=== PATIENT | male | born 1975 | race Caucasian/White ===

== ENCOUNTER 2018-10-09 04:32 | Day surgery (SDC) | payer OTHER ==
[~2018-10-09] VITALS: Ht 182.9 cm; Wt 119.7 kg
[2018-10-09 05:11] LABS: BASOPHILS 0.4 % (0-2); EOSINOPHILS 4.4 % (0-7); HEMATOCRIT 38.4 % (42.0-54.0); HEMOGLOBIN 13.7 g/dL (13.5-17.5); IMMATURE GRANULOCYTES 0.1 % (0-5); LYMPHOCYTES 44.9 % (15-50); MCHC 35.7 g/dL (31.0-37.0); MCV 86.9 fL (80.0-100.0); MEAN PLATELET VOLUME 9.1 fL (7.4-10.4); MONOCYTES 4.8 % (2-11); NEUTROPHILS 45.4 % (40-80); PLATELET COUNT 245 10x3/uL (130-400); RBC 4.42 10x6/uL (4.20-6.10); RDW 12.4 % (11.5-14.5); WBC 7.1 10x3/uL (4.8-10.8)
[2018-10-09 05:42] LABS: ANION GAP 13.7 mmol/L (8-16); CALCIUM 8.9 mg/dL (8.5-10.1); CARBON DIOXIDE 27.7 mmol/L (21.0-32.0); CREATININE - SERUM 1.2 mg/dL (0.6-1.3); POTASSIUM - SERUM 3.4 mmol/L (3.5-5.1)
[2018-10-09] MEDS ORDERED: BUSPAR10 MG PO (06:33)
[2018-10-09] MEDS ORDERED: PAXIL40 MG PO (06:33)
[2018-10-09] MEDS ORDERED: APAP325 MG PO (06:34)
[2018-10-09] MEDS ORDERED: ULTRAM50 MG PO (06:34)
[2018-10-09] MEDS ORDERED: CHLORTHALIDONE25 MG PO (06:35)
[2018-10-09] MEDS ORDERED: OMEPRAZOLE20 M1 PO (06:35)
[2018-10-09 06:42] VITALS: BP 150/102; Ht 182.9 cm; Wt 119.7 kg
== END 2018-10-09 12:50 | disposition home or self-care (01) ==
LOC: D.OPS 04:32
PROVIDERS: Anesthesiology; ATTEND Orthopaedic Surgery
DX: S83.241A Other tear of medial meniscus, current injury, right knee, initial encounter (principal); X58.XXXA Exposure to other specified factors, initial encounter; M22.41 Chondromalacia patellae, right knee; M67.51 Plica syndrome, right knee; Z01.812 Encounter for preprocedural laboratory examination

== ENCOUNTER → 2019-02-10 11:02 | Outpatient (CLI) | payer OTHER ==
[2018-10-09 06:42] VITALS: BMI 33.7
[~2019-02-10 11:02] MED LIST: APAP325 MG PO; BUSPAR10 MG PO; CHLORTHALIDONE25 MG PO; OMEPRAZOLE20 M1 PO; PAXIL40 MG PO; ULTRAM50 MG PO
[2019-02-10 11:42] LABS: NEUT - BF 42 %
== END | disposition home or self-care (01) ==
LOC: D.LABREF 11:02
PROVIDERS: ATTEND Orthopaedic Surgery
DX: M25.561 Pain in right knee (principal)